=== PATIENT | male | born 1965 | race Caucasian/White ===

== ENCOUNTER 2024-08-17 22:51 | Emergency (ER) | payer OTHER ==
[~2024-08-17] VITALS: Ht 175.3 cm; Wt 97.7 kg
[2024-08-18 00:15] VITALS: TEMP 98
[2024-08-18 00:21] VITALS: BP 153/99; PULSE 60; RESP 16; O2SAT 98
[2024-08-18] MEDS: TraMADol HCL 50 MG TABLET PO ONE (02:18)
== END 2024-08-18 02:29 | disposition home or self-care (01) ==
LOC: EMS 22:56
DX: S43.102A Unspecified dislocation of left acromioclavicular joint, initial encounter (principal); E78.5 Hyperlipidemia, unspecified; I10 Essential (primary) hypertension; W22.8XXA Striking against or struck by other objects, initial encounter; Y93.89 Activity, other specified; Y92.89 Other specified places as the place of occurrence of the external cause; Y99.8 Other external cause status
CPT/HCPCS: 99283

== ENCOUNTER → 2025-03-24 | Outpatient (CLI) | payer OTHER ==
[~2025-03-24] MED LIST: ACET-2247 PO; AMLO-258 PO; ASPI-1450 PO; ATOR40TA28 PO; CALC625T66 PO; CETI10TA77 PO; CHOL400T56 PO; DICL100G60 TP; DOCU-385 PO; FAMO20 PO; LIDO1ADH83 TP; NAPR-1196 PO; OMEP-148 PO; ONDA-104 PO; SELE120S2 TP; TERA2CAP10 PO; VENL-67 PO; ZINC50CA3 PO; [UNRECOGNIZED DRUG - CODE] TP
[2025-03-24 14:44] VITALS: BP 103/74; PULSE 78; RESP 18; TEMP 98.1; O2SAT 96
== END | disposition home or self-care (01) ==
LOC: SRCNTR 13:46 → EDSTATUS 14:15
PROVIDERS: ATTEND Internal Medicine
DX: Z45.010 Encounter for checking and testing of cardiac pacemaker pulse generator [battery] (principal)
CPT/HCPCS: G0463